=== PATIENT | female | born 1980 | race Two or more races ===

== ENCOUNTER 2025-01-03 11:25 | Emergency (ER) | payer OTHER | END 2025-01-03 11:35 | disposition left against medical advice (07) | LOC: ER 11:34 | DX: T50.901A Poisoning by unspecified drugs, medicaments and biological substances, accidental (unintentional), initial encounter (principal); Z53.21 Procedure and treatment not carried out due to patient leaving prior to being seen by health care provider; Y92.89 Other specified places as the place of occurrence of the external cause ==